=== PATIENT | male | born 1955 | race Caucasian/White ===

== ENCOUNTER 2020-01-21 16:26 | Inpatient (IN) | payer OTHER, SELFPAY ==
[~2020-01-21] VITALS: Ht 172.7 cm; Wt 74.8 kg
[2020-01-21 16:26] VITALS: BP_SYST 123
--- NOTE | 2020-01-21 16:26 | NUR ---
Placed in room 6. Placed on electronic console display operator, blood pressure machine and pulse oximeter. To gown for exam. Side rails up. Report given to MEI Lee.
--- NOTE | 2020-01-21 16:50 | NUR ---
PT ARRIVES FROM [facility] W/ C/O CP INTERMITENT AND DREW. LIMITED HX WAS ABLE TO OBTAINED FROM THE PT. pT HAS HX OF CVA, AND IS BEBOUND. STOMA IS VISUALIZED FROM A PRIOR INTUBATION. PT IS AWAKE AND ALERT
--- NOTE | 2020-01-21 16:55 | NUR ---
# 20 gauge angiocath placed to lfa. Use of asceptic technique. Opsite placed over site. Blood return noted. Blood for lab drawn from site. Flushed with 10 cc of normal saline. No evidence of infiltration noted. Patient tolerated well.
[2020-01-21] MEDS ORDERED: ASPIRIN 81 MG TAB.CHEW GT ONE (17:00)
[2020-01-21] MEDS ORDERED: PANTOPRAZOLE SODIUM 40 MG/VIAL (PROTONIX) IVP ONE (17:00)
[2020-01-21 17:23] LABS: CALCIUM 7.8 mg/dL (8.4-11.0); CREATININE 1.1 mg/dL (0.55-1.30); POTASSIUM 3.4 mmol/L (3.5-5.1)
[2020-01-21 17:26] LABS: BASOPHILS % (AUTO) 0.1 % (0.0-2.0); HEMATOCRIT 26.2 % (36-54); LYMPHOCYTES # (AUTO) 1.2 K/uL (1.0-5.5); LYMPHOCYTES % (AUTO) 6.7 % (20.5-51.5); MEAN CORPUSCULAR HEMOGLOBIN 34 pg (27-31); MEAN CORPUSCULAR HGB CONC 34 % (32-36); MEAN CORPUSCULAR VOLUME 100 fL (79.0-98.0); MONOCYTES # (AUTO) 0.4 K/uL (0.0-1.0); MONOCYTES % (AUTO) 2.1 % (1.7-9.3); NEUTROPHILS # (AUTO) 16.4 K/uL (1.8-7.7); NEUTROPHILS % (AUTO) 91.1 % (40.0-70.0); PLATELET COUNT (AUTO) 203 K/uL (130-430); RED BLOOD CELL COUNT(AUTO) 2.63 MIL/uL (4.2-6.2); RED CELL DISTRIBUTION WIDTH 12.8 % (9.0-15.0)
[2020-01-21 17:28] LABS: ALBUMIN 1.7 g/dL (3.4-4.8); TOTAL BILIRUBIN 0.3 mg/dL (0.0-1.0)
[2020-01-21] MEDS ORDERED: PIPERACILLIN/TAZO 3.375 GM in NS 50 ML IV ONE (17:30)
[2020-01-21 17:39] LABS: PROTHROMBIN TIME 10.4 SECS (9.5-12.5)
[2020-01-21] MEDS ORDERED: PIPERACILLIN/TAZOBACTAM 3.375 GM/VIAL (ZOSYN) IV ONE (17:46)
--- NOTE | 2020-01-21 17:50 | NUR ---
cOVID SWAB COLLECTED AND SENT TO THE LAB
[2020-01-21 17:57] LABS: C-REACTIVE PROTEIN QUANT 20.7 mg/dL (0-0.5)
--- NOTE | 2020-01-21 18:54 | NUR ---
UA collected via straight cath and sen to the lab
[2020-01-21] MEDS ORDERED: AZITHROMYCIN 500 MG in NS 250 ML IV ONE (19:00)
--- NOTE | 2020-01-21 19:00 | NUR ---
pt getting ABG's drawn, at the bedside.
--- NOTE | 2020-01-21 19:19 | NUR ---
Report given to Lisa HURLEY. Pt is in stable condition
--- NOTE | 2020-01-21 19:19 | NUR ---
Report recieved from MEI Lee.
--- NOTE | 2020-01-21 19:22 | NUR ---
REENA Winters at bedside examining patient.
[2020-01-21] MEDS ORDERED: AZITHROMYCIN 500 MG/VIAL (ZITHROMAX) IV ONE (19:42)
--- NOTE | 2020-01-21 19:42 | NUR ---
Pt resting, AxOx2, Azithromycin 500 mg given. Tolerating well.
[2020-01-21 19:46] LABS: BILIRUBIN,URINE NEGATIVE (NEGATIVE); CLARITY/URINE CLEAR (CLEAR); COLOR,URINE YELLOW (YELLOW); GLUCOSE,URINE TRACE (NEGATIVE); KETONES,URINE NEGATIVE (NEGATIVE); LEUKOCYTE ESTERASE ,URINE NEGATIVE (NEGATIVE); NITRITE, URINE NEGATIVE (NEGATIVE); PH,URINE 6.5 (5.0-8.0); PROTEIN URINE 3+ (NEGATIVE)
[2020-01-21 20:02] LABS: BLOOD, URINE TRACE (NEGATIVE)
[2020-01-21 20:49] LABS: BACTERIA,URINE MODERATE /HPF (None Seen)
[2020-01-21 20:50] LABS: CALCIUM OXALATE CRYSTALS,UR None Seen /HPF (None Seen); CALCIUM PHOSPHATE CRYSTALS,UR None Seen /HPF (None Seen); TRICHOMONAS,URINE None Seen /HPF (None Seen); TRIPLE PHOSPHATE CRYSTAL,UR None Seen /HPF (None Seen); URIC ACID CRYSTALS,URINE None Seen /HPF (None Seen); YEAST,URINE Few /HPF (None Seen)
[2020-01-21 20:51] LABS: COARSE GRANULAR CASTS,URINE None Seen /LPF (None Seen); FINE GRANULAR CASTS,URINE None Seen /LPF (None Seen); HYALINE CASTS, URINE None Seen /LPF (None Seen); MUCUS,URINE None Seen /LPF (None Seen); OTHER CASTS, URINE None Seen /LPF (None Seen); OTHER CRYSTALS,URINE None Seen /HPF (None Seen); URINE AMORPHOUS PHOSPHATES None Seen /HPF (None Seen); URINE AMORPHOUS URATE None Seen /HPF (None Seen); WAXY CASTS,URINE None Seen /LPF (None Seen)
--- NOTE | 2020-01-21 21:05 | NUR ---
Patient will be admitted to care of Admitted to [facility] unit. Will go to room 124. Belongings list completed. Complete and up to date summary report printed. SBAR report to be given at bedside with opportunity for questions.
--- NOTE | 2020-01-21 21:09 | NUR ---
Admission Note Received patient from ER with diagnosis of PNEUMONIA/ R/O COVID. Initial Plan of Care discussed-patient verbalized understanding. Oriented to room 124, call light, pain management and safety.
[2020-01-21 21:46] VITALS: BP_SYST 148
--- NOTE | 2020-01-21 22:00 | NUR ---
INITIAL NOTES Patient is resting, HOB elevated, Gtube intact, started gTUBE feeding with rate ordered by MD, residual of 5ml. IV site patent, dressings c/d/i, saline lock. No signs of shortness of breath, room air, sating at 100, occasional coughing noted. Call light within reach, speaks Kiswahili and little Thai, explained usage of call light, will make rounds as patient did not verbalize understanding of call light use. Bed alarm on, bed at lowest position, will continue to monitor.
--- NOTE | 2020-01-21 22:20 | NUR ---
Patient is wheezing, respiratory rate of 20, O2 saturation of 100. No signs of aspiration. Gtube feeding tolerated well, residual of 5 ml. HOB elevated, will continue to monitor. Addendum: 01/22/20 at 0127 by Lucy Bone RN WRONG TIME- CORRECT TIME- [id number]
[2020-01-22] VITALS (11 sets, daily range): BP systolic 86–177
--- NOTE | 2020-01-22 01:28 | NUR ---
Patient is resting, no signs of acute respiratory distress observed. Will continue to monitor.
--- NOTE | 2020-01-22 04:20 | NUR ---
Incontinence care provided. Patient helps turning. Will continue to monitor.
[2020-01-22] MEDS ORDERED: DEXTROSE 50% JECT 50 ML DISP.SYRIN IVP PRN (05:30)
[2020-01-22] MEDS ORDERED: ONDANSETRON HCL 4 MG/2 ML VIAL IVP PRN (05:30)
[2020-01-22] MEDS ORDERED: METOCLOPRAMIDE HCL 10 MG/2 ML VIAL IVP PRN (05:30)
[2020-01-22] MEDS: PIPERACILLIN/TAZO 3.375/DEX-IS 50 ML IV SCH ×3 (06:00→18:30)
--- NOTE | 2020-01-22 06:08 | NUR ---
Consultation Paged Reason for Consultation: Pneumonia/Ruleout Covid Was consult called: Y Person who was notified: Dr. Blake through pager Consulting Physician: Dr. Blake Estimation Manager Ordering Physician: Dr. Centeno
[2020-01-22] MEDS ORDERED: PIPERACILLIN/TAZOBACTAM 3.375 GM/VIAL (ZOSYN) IV ONE (06:23)
--- NOTE | 2020-01-22 07:20 | NUR ---
CLOSING NOTES Patient is resting, HOB elevated, room air, 100% saturation, IV site patent, IVF running, dressings c/d/i, G tube in place, running Gtube feeding, patient tolerating well. Patient spoke to son on phone. Blood sugar 205, insulin coverage provided. CAll light within reach, bed alarm on, bed at lowest position. All needs met throughotu shift. Will endorse care to oncoming shift.
[2020-01-22] MEDS: INSULIN REGULAR, HUMAN 100 UNITS/ML, 10 ML VIAL (humuLIN R) SUBCUT PRN ×3 (07:29→23:31)
[2020-01-22] MEDS: ACETAMINOPHEN 325 MG TABLET PO PRN (07:29)
--- NOTE | 2020-01-22 07:30 | NUR ---
Nutrition Update Mathew Scale 15 noted. Pt admitted for Pneumonia, R/O COVID-19 Diet: Glucerna 1.2 at 50ml/hr, Free Water Flush 30cc via GT BMI: 25.1 kg/m2 RD to follow per nutrition care standards.
--- NOTE | 2020-01-22 08:00 | NUR ---
AM ROUNDS: PATIENT SLEEPING DURING ROUNDS. VITAL SIGNS TAKEN,AFEBRILE.IV SALINE LOCK AT LEFT WRIST INTACT.TUBE FEEDS ON GOING. CALL LIGHT WITH IN REACH. BED LOCKED AT LOWEST POSITION. BED ALARM ON.CONTACT AIRBORNE DROPLET PRECAUTION RENDERED FOR COVID PUI,RESULTS STILL PENDING. NO ACUTE DISTRESS.
--- NOTE | 2020-01-22 10:00 | NUR ---
RN ROUNDS: RESTING. TUBE FEEDS ON GOING. STABLE.
--- NOTE | 2020-01-22 11:05 | NUR ---
Dietitian Recommendations *Recommend continuing Glucerna 1.2 at 50ml/hr via GT. Provides: 1440 kcal, 72gm protein and 966ml fluids daily from tubefeeding alone. Meets: 82% of lower end of estimated calorie needs and 103% of estimated protein needs. Please see Nutritional Assessment for details. MONIE, RD
--- NOTE | 2020-01-22 12:46 | NUR ---
TAYLOR PAGED: SPEAK WITH DR SANABRIA FOR PATIENT HAVING MILD SOB,O2 SAT=96-98%.ORDERED FOR STAT ABG AND CHEST X-RAY.
--- NOTE | 2020-01-22 13:00 | NUR ---
NASAL CANNULA: ABG RESULTS WITH PO2=66% AND THE REST WNL,RT PUT PATIENT ON O2 2L/NC,O2 SATURATION 98%.PATIENT'S BREATHING IMPROVED.
[2020-01-22] MEDS: MORPHINE 2 MG/ML INJ. SYRINGE IVP PRN (14:50)
--- NOTE | 2020-01-22 14:50 | NUR ---
HEADACHE/ANXIOUS: MORPHINE 2 MG IVP GIVEN PER REQUEST FOR HEADACHE. NO ADVERSE REACTIONS NOTED.
--- NOTE | 2020-01-22 14:58 | NUR ---
PATIENT CONDITION CALLED DR KEITH TO INFORMED HIM WITH PATIENT FAST HEART RATE, NEW ONSET AFIB. ORDERS RECEIVED
[2020-01-22] MEDS ORDERED: DILTIAZEM HCL 25 MG/5 ML VIAL IVP ONE (15:00)
--- NOTE | 2020-01-22 15:00 | NUR ---
CONSULTATION CALLED CARDIO CONSULTATION WITHDR KAUSHIK CERON
--- NOTE | 2020-01-22 15:04 | NUR ---
CARDIZEM IV: IV CARDIZEM 10MG IVP GIVEN FOR SVT'S ORDERED BY .
[2020-01-22] MEDS ORDERED: DILTIAZEM HCL 25 MG/5 ML VIAL ONE (15:09)
[2020-01-22] MEDS ORDERED: AMIODARONE HCL 200 MG TABLET GT ONE (15:45)
--- NOTE | 2020-01-22 15:45 | NUR ---
CARDIO ORDER: CONSULT WAS CALLED TO DR FAULKNER WITH ORDERS TO GIVE AMIODARONE 400MG PER G-TUBE AND ELIQUIS 5MG PER G-TUBE GIVEN . NO RESIDUALS PRIOR TO GIVING MEDS.
[2020-01-22] MEDS ORDERED: NOR10 GT (15:54)
[2020-01-22] MEDS ORDERED: INSU100V35 SQ (15:54)
--- NOTE | 2020-01-22 16:50 | NUR ---
TRANSFER TO ICU: TRANSFER TO ICU VIA BED ORDERED BY DR SANABRIA FOR CHANGE OF CONDITION. REPORT GIVEN TO ICU NURSE NILSA.
[2020-01-22] MEDS ORDERED: APIXABAN 2.5 MG TABLET GT ONE (17:00)
--- NOTE | 2020-01-22 17:00 | NUR ---
Assisted Dr. Blake with intubation. Intubation successful @ 1715, breath sounds present on both sides with bilateral chest rise. 7.5 ETT @ 26cm LL
--- NOTE | 2020-01-22 17:00 | NUR ---
Transfer note. Received plan of care via sbar from endorsing MEI Yepez.
--- NOTE | 2020-01-22 17:22 | NUR ---
TRANSFER ORDER: DR SANABRIA CAME AND SAW PATIENT IN THE ROOM WITH ORDERS TRANSFER TO ICU FOR CHANGE OF CONDITION. Addendum: 01/22/20 at 2010 by Precious Walter RN CORRECTED ABOVE TIME: CORRECT TIME WAS 1650PM.
[2020-01-22] MEDS ORDERED: PROPOFOL DRIP 1000 MG/ 100 ML BTL IV PRN (17:30)
[2020-01-22] MEDS ORDERED: AMIODARONE HCL 150 MG in D5W 100 ML IV ONE (17:30)
--- NOTE | 2020-01-22 17:33 | NUR ---
PAGED: CALLED DR KEITH'S EXCHANGE AND SPOKE WITH MEEK HERNÁNDEZ: PATIENT WAS TRANSFERRED TO ICU DUE TO CHANGE OF CONDITION BY DR SANABRIA'S ORDER.
--- NOTE | 2020-01-22 17:50 | NUR ---
Received patient from telemetry and was asked to help Dr. Blake intubated patient with RT. Received order for 20 Etomidate and 40 Succinylcholine. Patient received medication and intubated. Patient tolerated without complaint or complications. X Ray completed to confirm placement of ET Tube.
[2020-01-22] MEDS ORDERED: NACL 0.9% 1,000 ML IV ONE (19:00)
--- NOTE | 2020-01-22 19:00 | NUR ---
Dr. Blake called due to patient's low blood pressure. 64/42. Received orders to stop the propofol drip and to give 1 L bolus and start patient on madazolam drip.
--- NOTE | 2020-01-22 19:45 | NUR ---
Closing Note Provided plan of care via sbar to receiving MEI Hancock.
[2020-01-22] MEDS: MIDAZOLAM HCL IN 0.9 % NACL/PF 50 ML IV PRN (19:59)
--- NOTE | 2020-01-22 20:00 | NUR ---
Opening Note Pt in bed, agitated, bucking ventilator. Versed Drip to be started, new orders received, Propofol discontinued. Will monitor sedation level. Pt alert and able to track, but unable to follow commands. Attempting to pull ETT. Restraints noted bilaterally to wrist. A-fib on the monitor, uncontrolled, w/ HR in the 120-140s. Amiodarone drip running via IV site. Tolerating vent settings. G-tube in place, clamped. No residual noted. Skin intact, will continue to monitor.
[2020-01-22] MEDS ORDERED: AMIODARONE HCL 200 MG TABLET GT SCH (21:00)
[2020-01-22] MEDS: AMIODARONE HCL 900 MG in D5W 482 ML IV PRN (21:26)
--- NOTE | 2020-01-22 21:40 | NUR ---
PAGED DR. SANABRIA FOR ORDERS DIALED: [phone] SPOKE TO: AUTOMATED EXCHANGE
--- NOTE | 2020-01-22 21:49 | NUR ---
Called Dr. Dubois called and made squires of Post intubation ABG. New orders received. Will carry out as ordered.
--- NOTE | 2020-01-22 22:45 | NUR ---
rt notes 2019- abg done 2199- titrated fio2 to 50%, abg PO2 500%. pt cruz well. sat 100%. 2244- titrated fio2 to 40% per MD order, keep sat 92 and above.sat 100% katarina continue to monitor pt, pt asleep as of right now. rn america aware of changes.
[2020-01-23] VITALS (30 sets, daily range): BP systolic 102–171
[2020-01-23] MEDS: PIPERACILLIN/TAZO 3.375/DEX-IS 50 ML IV SCH ×4 (00:50→19:02)
--- NOTE | 2020-01-23 01:30 | NUR ---
RN Rounds Pt in bed asleep. No s/s of distress noted. Pt tolerating vent settings, FIO2 titrated down to 40%. BP stable, remains A-fib on the monitor. Will continue to monitor.
--- NOTE | 2020-01-23 03:31 | NUR ---
Pt rhythm now NSR w/ rate in the 70-80s. Pt remains asymptomatic, no s/s of distress noted. Tolerating vent settings. Will continue to monitor.
[2020-01-23] MEDS: APIXABAN 2.5 MG TABLET GT SCH ×2 (05:59→19:04)
[2020-01-23] MEDS: MIDAZOLAM HCL IN 0.9 % NACL/PF 50 ML IV PRN ×2 (06:05→15:34)
--- NOTE | 2020-01-23 06:15 | NUR ---
DE LA PAZ CATH: #14 FR [place] catheter inserted with use of sterile technique. Bulb inflated with 10 cc sterile water. Immediate return of 50 cc yellow urine noted. Bedside drainage bag placed below level of bladder. Pt tolerated procedure.
--- NOTE | 2020-01-23 06:37 | NUR ---
Closing Note Pt remains sedated, Versed @2mg/hr. SR noted, tolerating vent settings. VSS. Afebrile. IV sites C/D/I. Pt to have PICC Line placed today. Consent signed and in chart. Howe catheter inserted, yellow urine output noted. Restraints remain in place, bilaterally. No s/s of skin breakdown noted. G-tube remains clamped. Will endorse to oncoming RN.
--- NOTE | 2020-01-23 08:02 | NUR ---
Endorsement Report given to oncoming RN at bedside via SBAR approach.
--- NOTE | 2020-01-23 08:03 | NUR ---
OPENING NOTE Patient resting in the bed. No acute distress. HOB elevated. ET tube intact, size 7.5, lipline 26cm. On vent: AC=14, AS=533, FiO2=40%, PEEP=5. Skin warm and dry to touch. IV intact to left and right wrist, no redness, no swelling, patent. On NS at 999ml/hr, Versed drip at 4mg/hr, Amiodarone drip at 0.5mg/min, infusing well. F/C intact, drain gravity. On isolation. Bilateral wrist soft restraint in placed. Safety measure maintained. Call light within reached. Will continue to monitor.
--- NOTE | 2020-01-23 08:20 | NUR ---
SEEN AND EXAMINED BY STACIA ELLINGTON WITH ORDER RECEIVED.
[2020-01-23 09:37] LABS: BASOPHILS % (AUTO) 0.3 % (0.0-2.0); EOSINOPHILS # (AUTO) 0.1 K/uL (0.0-0.4); EOSINOPHILS % (AUTO) 0.5 % (0.0-4.0); HEMATOCRIT 27.3 % (36-54); HEMOGLOBIN 9.3 g/dL (14.0-18.0); LYMPHOCYTES # (AUTO) 1.6 K/uL (1.0-5.5); LYMPHOCYTES % (AUTO) 12.9 % (20.5-51.5); MEAN CORPUSCULAR HEMOGLOBIN 34 pg (27-31); MEAN CORPUSCULAR HGB CONC 34 % (32-36); MEAN CORPUSCULAR VOLUME 100 fL (79.0-98.0); MONOCYTES # (AUTO) 0.6 K/uL (0.0-1.0); MONOCYTES % (AUTO) 4.7 % (1.7-9.3); NEUTROPHILS # (AUTO) 10.3 K/uL (1.8-7.7); NEUTROPHILS % (AUTO) 81.6 % (40.0-70.0); PLATELET COUNT (AUTO) 214 K/uL (130-430); RED BLOOD CELL COUNT(AUTO) 2.74 MIL/uL (4.2-6.2); RED CELL DISTRIBUTION WIDTH 13.2 % (9.0-15.0); WHITE BLOOD COUNT (AUTO) 12.6 K/uL (4.8-10.8)
[2020-01-23 09:52] LABS: ALBUMIN 1.6 g/dL (3.4-4.8); CALCIUM 7.8 mg/dL (8.4-11.0); CREATININE 1.13 mg/dL (0.55-1.30); TOTAL BILIRUBIN 0.5 mg/dL (0.0-1.0)
[2020-01-23 10:15] LABS: POTASSIUM 2.9 mmol/L (3.5-5.1)
--- NOTE | 2020-01-23 10:59 | NUR ---
PICC LINE INSERTION PICC line inserted by PICC RN at bedside. Patient tolerated procedure well. PICC intact to right upper arm with 2 lumen. Waited x-ray for placement confirmation.
--- NOTE | 2020-01-23 12:05 | NUR ---
2D ECHO DONE AT BEDSIDE.
--- NOTE | 2020-01-23 12:09 | NUR ---
X-RAY CONFIRMED THE PICC LINE PLACEMENT, OK TO USE.
--- NOTE | 2020-01-23 12:10 | NUR ---
GT FEEDING STARTED Started GT feeding of Glucerna 1.5 at 30ml/hr. HOB elevated. Continue to monitor.
--- NOTE | 2020-01-23 12:22 | NUR ---
K=2.9 Called Ace Lorenzo regarding K=2.9. However, not called back. Called Juan Carlos Latham with order received.
[2020-01-23] MEDS ORDERED: POTASSIUM CHLORIDE 40 MEQ in NS 250 ML IV ONE (12:30)
[2020-01-23] MEDS ORDERED: POTASSIUM CHLORIDE 20 MEQ/PKT PACKET GT ONE (12:30)
[2020-01-23] MEDS: INSULIN REGULAR, HUMAN 100 UNITS/ML, 10 ML VIAL (humuLIN R) SUBCUT PRN ×2 (12:51→19:03)
--- NOTE | 2020-01-23 14:45 | NUR ---
ROUND Patient resting in the bed with eye closed. No acute distress. ET tube intact to vent. HOB elevated. Continue on GT feeding, tolerated well. F/C intact, drain gravity. Bilateral wrist soft restraint in placed. Isolation maintained. Safety measure maintained. Call light within reached. Continue to monitor.
--- NOTE | 2020-01-23 16:20 | NUR ---
ROUND Patient resting in the bed with eye closed. No acute distress. ET tube intact to vent. HOB elevated. Continue on GT feeding, tolerated well. F/C intact, drain gravity. Bilateral wrist soft restraint in placed, able to move fingers and hand without problem. Isolation maintained. Safety measure maintained. Call light within reached. Continue to monitor.
--- NOTE | 2020-01-23 16:31 | NUR ---
Case mgt: I rec'd voice message at 1610 from a lady named Marge from [facility] wanting to discuss pt possibly going home on home health. Our dept hasn't faxed any referrals to [facility] and pt come to us from [facility]--Marge's ph#[phone]-- RN
[2020-01-23] MEDS: AMIODARONE HCL 900 MG in D5W 482 ML IV PRN (16:48)
--- NOTE | 2020-01-23 18:45 | NUR ---
CLOSING NOTED Patient resting in the bed. No acute distress. ET tube intact to vent. HOB elevated. GT intact, patent. GT feeding tolerated well. F/C intact, drain gravity. All needs met. Bilateral wrist soft restraint in placed. Released Q2hr. Able to move fingers and hands without problem. Safety measure maintained. Call light within reached. Will endorse to night nurse.
--- NOTE | 2020-01-23 20:00 | NUR ---
ORALLY INTUBATED. SUCTIONED WITH SMALL AMOUNT OF WHITE MUCUS OBTAINED. ORAL CARE GIVEN. LEFT EXTREMITIES IMPAIRED. RIMA SOFT WRIST RESTRAINTS ON FOR SAFETY. GT FEEDING WITH GLUCERNA 1.5 INFUSING AT 30CC/HR. BRANDI PICC LINE DRSG D/I. ON VERSED DRIP AT 4 MG/HR, AND AMIODARONE DRIP AT 0.5MG/MIN. DE LA PAZ CATH PATENT DRAINING CLOUDY JOURDAN URINE TO GRAVITY. SR. ISOLATION OBSERVED FOR PUI COVID.
--- NOTE | 2020-01-23 22:00 | NUR ---
SUCTIONED. TURNED. HS CARE GIVEN.
[2020-01-24] VITALS (32 sets, daily range): BP systolic 123–171
--- NOTE | 2020-01-24 | NUR ---
ACCU-CHEK 197, 2 UNITS REGULAR INSULIN SQ GIVEN PER SLIDING SCALE COV. ORAL CARE. SUCTIONED. GT FLUSHED WITH 150CC H2O.
[2020-01-24] MEDS: PIPERACILLIN/TAZO 3.375/DEX-IS 50 ML IV SCH ×4 (00:08→17:37)
[2020-01-24] MEDS: INSULIN REGULAR, HUMAN 100 UNITS/ML, 10 ML VIAL (humuLIN R) SUBCUT PRN ×4 (00:10→17:36)
--- NOTE | 2020-01-24 02:00 | NUR ---
SOUNDLY ASLEEP. NO DISTRESS NOTED. PULSES PALPABLE.
[2020-01-24] MEDS: MIDAZOLAM HCL IN 0.9 % NACL/PF 50 ML IV PRN (02:38)
--- NOTE | 2020-01-24 05:00 | NUR ---
CHG BATH GIVEN. ORAL CARE. PARTIAL LINEN CHANGE. DOES NOT ASSIST WITH TURNING. CASSI PROC WELL.
[2020-01-24] MEDS: APIXABAN 2.5 MG TABLET GT SCH ×2 (05:46→17:36)
[2020-01-24 05:56] LABS: BASOPHILS % (AUTO) 0.2 % (0.0-2.0); EOSINOPHILS # (AUTO) 0.1 K/uL (0.0-0.4); EOSINOPHILS % (AUTO) 0.8 % (0.0-4.0); HEMATOCRIT 26.2 % (36-54); HEMOGLOBIN 9.2 g/dL (14.0-18.0); LYMPHOCYTES # (AUTO) 1.1 K/uL (1.0-5.5); LYMPHOCYTES % (AUTO) 12.3 % (20.5-51.5); MEAN CORPUSCULAR HEMOGLOBIN 35 pg (27-31); MEAN CORPUSCULAR HGB CONC 35 % (32-36); MEAN CORPUSCULAR VOLUME 98 fL (79.0-98.0); MONOCYTES # (AUTO) 0.5 K/uL (0.0-1.0); MONOCYTES % (AUTO) 5.7 % (1.7-9.3); NEUTROPHILS # (AUTO) 7.1 K/uL (1.8-7.7); PLATELET COUNT (AUTO) 206 K/uL (130-430); RED BLOOD CELL COUNT(AUTO) 2.67 MIL/uL (4.2-6.2); RED CELL DISTRIBUTION WIDTH 12.9 % (9.0-15.0); WHITE BLOOD COUNT (AUTO) 8.8 K/uL (4.8-10.8)
--- NOTE | 2020-01-24 06:00 | NUR ---
ACCU-CHEK 215, 4 UNITS REGULAR INSULIN SQ GIVEN PER SLIDING SCALE COV. UO GOOD. GT FLUSHED WITH 150CC H2O. REMAINS IN GUARDED CONDITION.
[2020-01-24 06:43] LABS: ALBUMIN 1.6 g/dL (3.4-4.8); CALCIUM 7.7 mg/dL (8.4-11.0); CREATININE 1.02 mg/dL (0.55-1.30); POTASSIUM 3.2 mmol/L (3.5-5.1); THYROID STIMULATING HORMONE 0.42 uIu/mL (0.36-3.74); TOTAL BILIRUBIN 0.4 mg/dL (0.0-1.0)
--- NOTE | 2020-01-24 07:45 | NUR ---
PULMO CONSULT: SEEN BY DR. SANABRIA, CHANGED ORDER OF VENT SETTING TO CPAP 5, PS 12, FIO2 40% SATURATION 98-100%.
[2020-01-24] MEDS ORDERED: POTASSIUM CHLORIDE 20 MEQ/PKT PACKET GT ONE (08:45)
[2020-01-24] MEDS: AMIODARONE HCL 200 MG TABLET PO SCH ×2 (10:14→21:13)
--- NOTE | 2020-01-24 10:30 | NUR ---
Notes: notified MD Blake about the ABG result. new order received. noted and carried out. Addendum: 01/24/20 at 1039 by Ana Powell RN wrong entry to wrong patient. please disregard.
--- NOTE | 2020-01-24 11:30 | NUR ---
Decrease versed to 1 mg/hr. patient is opening eyes, able to move arms and bending legs. vent setting on cpap 5, ps 12, fio2 decrease to 30%. saturation 100%.
--- NOTE | 2020-01-24 12:27 | NUR ---
2 HRS AFTER AMIODARONE PO ADMINISTERED. AMIODARONE DRIP DISCONTINUED PER MD FAULKNER ORDERED.
--- NOTE | 2020-01-24 14:50 | NUR ---
notes: decrease versed to 0.5mg /hr. patient open eyes, able to move arms and bending knees. vital sign stable, afebrile. oral care, skin care, turn and reposition with pillow support.keep hob elevated to prevent aspiration. per MD Blake check for the leak in the ET tube. respiratory therapies informed.
--- NOTE | 2020-01-24 15:20 | NUR ---
family updated about the patient current condition.
--- NOTE | 2020-01-24 17:50 | NUR ---
Patient restless, biting tube,pointing to take off vent. increase versed to 1 mg/hr. per Dr. Blake place back to same setting. ac 14, tv 500, fio2 30% peep 5. saturation 99%.
--- NOTE | 2020-01-24 18:09 | NUR ---
1745 PT PLACED BACK ON ORIGINAL SETTINGS AC14 500+5 .30.... RN AWARE. Addendum: 01/24/20 at 1810 by Jazmín Stewart RT Amended: Links added.
--- NOTE | 2020-01-24 18:48 | NUR ---
Notes: all needs mets. vital signs stable, afebrile. no s/s of distress. patient awake, moving head, arms and legs. frequent reorientation needed.
--- NOTE | 2020-01-24 20:00 | NUR ---
OPENS EYES SPON. ORALLY INTUBATED. ON VERSED DRIP AT 1 MG/HR. RIMA SOFT WRIST RESTRAINTS ON FOR SAFETY. GT FEEDING WITH GLUCERNA 1.5 INFUSING AT 30CC HR. BRANDI PICC LINE DRSG D/I. DE LA PAZ CATH PATENT DRAINING JOURDAN HAZY URINE TO GRAVITY. SR.
--- NOTE | 2020-01-24 22:00 | NUR ---
SUCTIONED. TURNED. HS CARE DONE. VERSED INCREASED TO 2 MG/HR EARLIER FOR RESTLESSNESS.
[2020-01-25] VITALS (38 sets, daily range): BP systolic 106–181
--- NOTE | 2020-01-25 | NUR ---
AWAKE. ACCU-CHEK 210, 4 UNITS REGULAR INSULIN SQ GIVEN PER SLIDING SCALE COV. SUCTIONED AGAIN WITH SAME RESULTS. TURNED. ORAL CAR GIVEN. GT FLUSHED WITH 150CC H2O.
[2020-01-25] MEDS: INSULIN REGULAR, HUMAN 100 UNITS/ML, 10 ML VIAL (humuLIN R) SUBCUT PRN ×5 (00:03→23:18)
[2020-01-25] MEDS: MIDAZOLAM HCL IN 0.9 % NACL/PF 50 ML IV PRN (00:08)
--- NOTE | 2020-01-25 02:00 | NUR ---
DOZES ON AND OFF. NO DISTRESS NOTED.
--- NOTE | 2020-01-25 05:00 | NUR ---
1 MOD FORMED GREENISH BROWN STOOL DEFECATED, CLEANED. WILLOW-CARE GIVEN. CHG BATH DONE. ORAL CARE, DE LA PAZ CARE RENDERED. Z-GUARD APPLIED TO PERINEUM, SKIN CARE DONE. PARTIAL LINEN CHANGE DONE. DOES NOT ASSIST WITH TURNING. CASSI PROC WELL.
--- NOTE | 2020-01-25 06:00 | NUR ---
ACCU-CHEK 177, 2 UNITS REGULAR INSULIN SQ GIVEN PER SLIDING SCALE COV. UO GOOD. GT FLUSHED WITH 150CC H2O. REMAINS IN GUARDED CONDITION.
[2020-01-25] MEDS: PIPERACILLIN/TAZO 3.375/DEX-IS 50 ML IV SCH ×5 (06:04→23:16)
[2020-01-25] MEDS: APIXABAN 2.5 MG TABLET GT SCH ×2 (06:04→17:14)
--- NOTE | 2020-01-25 07:24 | NUR ---
Opening Note received bedside SBAR report from [facility] shift lead RN, patient resting in bed, respirations even and unlabored on mechanical ventilator, waller catheter draining to gravity, educated patient on use of call light and asked to call for assistance, call light in reach, bed in low and locked position, bed alarm on.
--- NOTE | 2020-01-25 09:00 | NUR ---
Physician Rounds Dr. Blake at bedside examining patient, per Dr. Blake stop IV versed drip and have respiratory therapist place patient on CPAP, versed drip stopped at this time, patient resting in bed, eyes open, patient awake, informed respiratory therapist of orders to place patient on CPAP and to call Dr. Blake for weaning procedures.
[2020-01-25] MEDS: AMIODARONE HCL 200 MG TABLET GT SCH ×2 (09:10→21:35)
--- NOTE | 2020-01-25 09:23 | NUR ---
CPAP respiratory therapist Rosalba at bedside, respiratory therapist placed patient on CPAP 5, pressure support 10, FiO2 30%, respirations even and unlabored.
--- NOTE | 2020-01-25 09:25 | NUR ---
0925 CHANGED VENT SETTINGS TO CPAP 5, PS 10. HR 82, SPO2 99%. PT TOLERATING WELL. CONTINUE TO MONITOR PT.
--- NOTE | 2020-01-25 10:14 | NUR ---
Wound Care educated patient on purpose and procedure for wound care, wound care completed to neck and buttocks, patient tolerated well, no pain noted during or after wound care, see ICU shift assessment for wound care.
--- NOTE | 2020-01-25 10:22 | NUR ---
Physician Rounds Dr. Centeno at bedside examining patient, informed him that patient is on CPAP and that versed was stopped at 0900.
--- NOTE | 2020-01-25 11:46 | NUR ---
Nutrition F/U Admitting Diagnosis Pneumonia, R/O COVID Reviewed Pertinent Medical/Surgical Hx Medical Record Medical History Comment: Pneumonia, COVID-19 Neagtive x 2 01/20, 01/22, Anemia, Hyperglycemia per ER MD documentation. PMH: DM, GERD, HTN< Renal Dz, PSH: Tracheostomy, GT placement. Subjective Information Per EMR review, COVID-19 PCR negative x2 on 01/20 and 01/22. Noted pt's TF regimen modified to TF Glucerna 1.5 at 30 ml/hr via GT per EMR. RD s/w ICU nursing station via phone this morning -- nursing station stated pt tolerating TF well w/ no residuals. FWF clarified per RN at 150 ml Q6H. Current TF regimen provides: 1080 kcal, 46 g protein, and 1147 total H2O -- meeting 62% of lower end estimated calorie needs and 65% of estimated protein needs and is not adequate. Recommend increase TF Glucerna 1.5 goal rate to 45 ml/hr w/ FWF 150 ml Q6H to provide -- 1620 kcal, 69 g protein, 1421 ml total H2O daily to meet 93% of estimated lower end calorie needs and 99% of estimated protein needs. Current Diet Order/Nutrition Support Glucerna 1.5 at 30ml/hr, Free Water Flush 30ml/hr via GT x 2 days Patient/Significant Other Unable To Verbalize Pertinent Medications insulin, reglan, zofran, piperacillin/tazobactam, eliquis Pertinent Labs 01/23 Na 145WNL, K 3.2L, BG 233H, BUN 20WNL; 01/24 POC BG 177H; COVID-19 PCR Negative x 2 01/20, 01/22 per EMR Height (Feet) 5 feet Height (Inches) 8.00 inches Weight (Pounds) 165 pounds Weight (Calculated Kilograms) 74.994106 kilograms Patient Weight 74.843 kg Difficulty With: Swallowing Skin Integrity Comment: Mathew scale: 13. No PIs, +healed scar to neck and coccyx. no edemas per EMR Current % PO N/A on EN support Estimated Energy Expenditure (kcals/day) 7144-2072 kcal/day (25-30 kcal/kg IBW for maintenance) Estimated Protein Required (g/day) 70gm/day (1gm/kg IBW for maintenance) Estimated Fluid Required (l/day) 2.1 L/day (30ml/kg IBW for maintenance) Problem/Etiology/Signs/Symptoms Altered nutrition-related labs r/t endocrine dysfunction AEB elevated BG and POC BG lab values and Hx of DM. *ongoing Expected Outcomes/Goals Monitor intake of nutrition support w/ goal of pt meeting at least 75% of estimated nutritional needs, labs trending WNL, normal GI function, skin integrity/wt maintenance. Dietitian Recommendations *Recommend increase goal rate TF Glucerna 1.5 to 45ml/hr via GT w/ FWF 150 ml Q6H. Provides: 1620 kcal, 69gm protein and 821ml fluids daily from tubefeeding alone. Meets: 93% of lower end of estimated calorie needs and 99% of estimated protein needs. Follow Up High Risk: F/U in 2-3days
--- NOTE | 2020-01-25 11:50 | NUR ---
1150 WEANING PARAMETERS. RSBI 45, SPONTANEOUS RES RATE 19, VT 425ML. PT UNABLE TO FOLLOW DIRECTIONS. UNABLE TO MEASURE NIF AND VC.
--- NOTE | 2020-01-25 12:02 | NUR ---
Dietitian Recommendations *Recommend increase goal rate TF Glucerna 1.5 to 45ml/hr via GT w/ FWF 150 ml Q6H. Provides: 1620 kcal, 69gm protein and 821ml fluids daily from tubefeeding alone. Meets: 93% of lower end of estimated calorie needs and 99% of estimated protein needs. Please see Nutrition F/U for details. EP,RD
--- NOTE | 2020-01-25 12:23 | NUR ---
Incontinent/Oral Care patient incontinent of bowel, patient cleaned and linen changed, patient repositioned, patient tolerated well, HOB elevated 30 degrees, oral care provided, patient tolerated well.
--- NOTE | 2020-01-25 14:30 | NUR ---
1430 I TALKED TO MD SANABRIA ON THE PHONE. WEANING PARAMETERS RSBI 45, PT UNABLE TO DO NIF AND VC. PT UNABLE TO FOLLOW DIRECTIONS. NOTIFIED MD SANABRIA. MD SANABRIA ORDERED TO BACK TO PREVIOUS SETTINGS, AC14, VT500, PEEP+5 FOR TONIGHT.
--- NOTE | 2020-01-25 14:39 | NUR ---
RN Rounds patient resting in bed, respirations even and unlabored on CPAP settings, HOB elevated 30 degrees, tube feeding infusing well, patient tolerating tube feeding well, zero residual.
[2020-01-25] MEDS ORDERED: hydrALAZINE HCL 25 MG TABLET GT ONE (15:30)
--- NOTE | 2020-01-25 15:31 | NUR ---
Spoke with Physician spoke with Dr. Harrison, informed him of patients BP 160/80, HR 78, new medication orders received, verified with telephone read back.
--- NOTE | 2020-01-25 17:06 | NUR ---
RN Rounds patient resting in bed, no pain noted using FLACC scale, tube feeding infusing well, zero residuals, HOB elevated 30 degrees.
--- NOTE | 2020-01-25 18:21 | NUR ---
Spoke with Physician spoke with Dr. Harrison, informed him of current BP 164/87, HR 83, informed him of home medication norvasc, new medication orders received to start tomorrow morning, per Dr. Harrison no medications are indicated at this time.
[2020-01-25] MEDS: MORPHINE 2 MG/ML INJ. SYRINGE IVP PRN ×2 (18:41→23:16)
--- NOTE | 2020-01-25 19:17 | NUR ---
Closing Note SBAR report given to receiving RN, patient resting in bed, pain controlled at this time using FLACC scale, respirations even and unlabored on CPAP mode on mechanical ventilator, waller catheter draining to gravity, educated patient on use of call light and asked to call for assistance, call light in reach, bed in low and locked position, bed alarm on.
--- NOTE | 2020-01-25 19:25 | NUR ---
PM SHIFT ASSESSMENT Pt is awake, able to respond to some yes or no questions. SR on monitor. Tolerating current vent settings. Skin warm and dry. Howe catheter in place and draining to gravity. BRANDI PICCLINE noted with TKO infusing. Bilateral wrist restraints in place, no signs of skin issues noted. Safety precautions in place, call light within reach. Will continue to monitor.
--- NOTE | 2020-01-25 20:00 | NUR ---
LEFT WRIST RESTRAINT TAKEN OFF. PT HAS LEFT SIDED WEAKNESS FROM HX OF CVA, PT IS UNABLE TO MOVE LEFT EXTREMITY ON HIS OWN. WILL CONTINUE TO MONITOR.
[2020-01-26] VITALS (28 sets, daily range): BP systolic 135–183
[2020-01-26] MEDS ORDERED: DEXAMETHASONE SOD PHOSPHATE 4 MG/ML VIAL IVP SCH
[2020-01-26] MEDS: PIPERACILLIN/TAZO 3.375/DEX-IS 50 ML IV SCH ×4 (05:50→23:34)
[2020-01-26] MEDS: APIXABAN 2.5 MG TABLET GT SCH ×2 (05:53→17:19)
[2020-01-26] MEDS: INSULIN REGULAR, HUMAN 100 UNITS/ML, 10 ML VIAL (humuLIN R) SUBCUT PRN ×4 (05:59→23:33)
--- NOTE | 2020-01-26 07:15 | NUR ---
ENDORSEMENT Pt care endorsed to dayshift RN using nursing SBAR.
--- NOTE | 2020-01-26 07:15 | NUR ---
Opening Note received SBAR report from production shift supervisor RN, patient resting in bed, respirations even and unlabored on mechanical ventilator, waller catheter draining to gravity, call light in reach, bed in low and locked position, bed alarm on.
[2020-01-26] MEDS: MORPHINE 2 MG/ML INJ. SYRINGE IVP PRN ×2 (07:26→21:28)
[2020-01-26] MEDS: amLODIPine BESYLATE 10 MG TABLET GT SCH (08:04)
[2020-01-26] MEDS: AMIODARONE HCL 200 MG TABLET GT SCH ×2 (08:04→21:27)
[2020-01-26] MEDS ORDERED: hydrALAZINE HCL 25 MG TABLET GT SCH (09:00)
--- NOTE | 2020-01-26 09:00 | NUR ---
Physician Rounds Dr. Blake at bedside examining patient with respiratory therapist, patient placed on CPAP 5, pressure support 10, Fi02 30%, respirations even and unlabored.
--- NOTE | 2020-01-26 09:23 | NUR ---
Physician Rounds Dr. Harrison at bedside examining patient.
[2020-01-26 10:33] LABS: CALCIUM 7.7 mg/dL (8.4-11.0); CREATININE 1.08 mg/dL (0.55-1.30); POTASSIUM 3.1 mmol/L (3.5-5.1)
[2020-01-26 10:35] LABS: BASOPHILS % (AUTO) 0.5 % (0.0-2.0); EOSINOPHILS # (AUTO) 0.2 K/uL (0.0-0.4); HEMATOCRIT 26.8 % (36-54); HEMOGLOBIN 9.1 g/dL (14.0-18.0); LYMPHOCYTES # (AUTO) 1.6 K/uL (1.0-5.5); LYMPHOCYTES % (AUTO) 17.8 % (20.5-51.5); MEAN CORPUSCULAR HEMOGLOBIN 34 pg (27-31); MEAN CORPUSCULAR HGB CONC 34 % (32-36); MEAN CORPUSCULAR VOLUME 99 fL (79.0-98.0); MONOCYTES # (AUTO) 0.6 K/uL (0.0-1.0); MONOCYTES % (AUTO) 6.2 % (1.7-9.3); NEUTROPHILS # (AUTO) 6.7 K/uL (1.8-7.7); NEUTROPHILS % (AUTO) 73.5 % (40.0-70.0); PLATELET COUNT (AUTO) 226 K/uL (130-430); RED BLOOD CELL COUNT(AUTO) 2.72 MIL/uL (4.2-6.2); RED CELL DISTRIBUTION WIDTH 12.9 % (9.0-15.0); WHITE BLOOD COUNT (AUTO) 9.1 K/uL (4.8-10.8)
[2020-01-26 10:44] LABS: ALBUMIN 1.7 g/dL (3.4-4.8); TOTAL BILIRUBIN 0.4 mg/dL (0.0-1.0)
--- NOTE | 2020-01-26 10:45 | NUR ---
Spoke with Physician spoke with Dr. Blake, informed her of patients ABG results, orders for extubation and to place patient on 2L nasal cannula, new medication orders for breathing treatments received, verified with read back.
--- NOTE | 2020-01-26 10:50 | NUR ---
RT NOTES - EXTUBATION PER DR. SANABRIA EXTUBATED PT WITH HELP OF MEI ZAFAR. PLACED ON 2L N/C POST EXTUBATION. SPO2 100%. HR 84. NO RESPIRATORY DISTRESS NOTED. WILL CONTINUE MONITORING.
--- NOTE | 2020-01-26 11:06 | NUR ---
PAGED PAGED STACIA JACKSON AT [phone] SPOKE WITH ACE.
--- NOTE | 2020-01-26 11:08 | NUR ---
Incontinent/Oral Care patient incontinent, small amount of stool noted, patient cleaned and linen changed, patient tolerated well, patient resting in bed, HOB elevated 35 degrees, oral care provided, patient tolerated well, patients respirations even and unlabored on 2L nasal cannula, O2Sat 100%, patient is verbal, speaking a few words, educated patient on use of call light and asked to call for assistance, patient verbalized understanding, patient returned demonstration, call light in reach.
--- NOTE | 2020-01-26 11:12 | NUR ---
Spoke with Physician spoke with Dr. Harrison, informed him of potassium 3.1, new medication orders received, verified with read back.
[2020-01-26] MEDS ORDERED: POTASSIUM CHLORIDE 20 MEQ/PKT PACKET GT ONE (11:15)
[2020-01-26] MEDS: IPRATROPIUM/ALBUTEROL SULFATE 3 ML AMPUL.NEB (DUONEB) INH SCH ×2 (11:15→19:00)
--- NOTE | 2020-01-26 11:42 | NUR ---
Wound Care educated patient on purpose and procedure for wound care to old stoma site, patient verbalized understanding, wound care completed, patient denies any pain during or after wound care, see ICU shift assessment for wound care.
--- NOTE | 2020-01-26 11:50 | NUR ---
Physician Rounds Dr. Humphries at bedside examining patient, informed Dr. Humphries of stridor heard since extubation, per Dr. Humphries this is expected after extubation, patient verbal, O2Sat 100%, no new orders.
[2020-01-26] MEDS ORDERED: CYANOCOBALAMIN 1000 mCg TABLET GT ONE (13:00)
[2020-01-26] MEDS ORDERED: MULTIVITAMINS TAB 1 TABLET GT ONE (13:00)
--- NOTE | 2020-01-26 13:05 | NUR ---
Spoke with Physician/BiPAP spoke with Dr. Blake, informed her of increasing audible stridor and that patient is using accessory muscles to breath, new medications orders received, verified with read back, orders for BiPAP received, respiratory therapist placed patient on BiPAP at 1320, stridor and patients use of accessory muscles has improved, patient resting in bed, O2Sat 100%, respiratory rate 17.
[2020-01-26] MEDS ORDERED: DEXAMETHASONE SOD PHOSPHATE 4 MG/ML VIAL IVP ONE (13:15)
[2020-01-26] MEDS ORDERED: RACEPINEPHRINE HCL 0.5 ML VIAL.NEB INH ONE ×3 (13:15→20:30)
--- NOTE | 2020-01-26 13:20 | NUR ---
RT NOTES Pt. appears to have responded to racemic epi well, placed pt on bipap 12/5 BUR 12 28% per Dr Blake's order. Pt appears to tolerate settings well. Alarms are set and audible @1335 pt. resting/sleeping comfortably.
[2020-01-26] MEDS ORDERED: DEXAMETHASONE SOD PHOSPHATE 4 MG/ML VIAL ONE (13:29)
--- NOTE | 2020-01-26 15:05 | NUR ---
RN Rounds patient repositioned in bed, respirations even and unlabored on BiPAP, patient denies any pain.
--- NOTE | 2020-01-26 17:35 | NUR ---
RN Rounds repositioned patient, patient resting in bed, tolerating BiPAP settings well, respiratory rate 19, O2Sat 100%, no acute distress noted, patient denies any pain.
--- NOTE | 2020-01-26 18:36 | NUR ---
Physician ROunds Dr. Blake at bedside examining patient.
--- NOTE | 2020-01-26 19:18 | NUR ---
Closing Note SBAR report given to receiving RN, patient resting in bed, patient tolerating BiPAP settings well, respirations even and unlabored, no acute distress noted, call light in reach, bed in low and locked position, bed alarm on, care endorsed to security shift manager RN.
--- NOTE | 2020-01-26 19:25 | NUR ---
PM SHIFT ASSESSMENT Pt is awake and oriented x2. ST on monitor. SPO2 above 98%. Skin warm and dry. Howe catheter in place and draining to gravity. BRANDI PICCLINE noted with TKO infusing. Bilateral wrist restraints in place, no signs of skin issues noted. Safety precautions in place, call light within reach. Will continue to monitor.
--- NOTE | 2020-01-26 20:45 | NUR ---
Spoke to Dr. Dubois. Informed MD that patient was having stridor and difficulty breathing. Received orders, will carry out.
[2020-01-26] MEDS: MULTIVITAMINS TAB 1 TABLET GT SCH (21:26)
[2020-01-27] VITALS (15 sets, daily range): BP systolic 149–173
[2020-01-27] MEDS: DEXAMETHASONE SOD PHOSPHATE 4 MG/ML VIAL IVP SCH ×4 (00:27→21:48)
--- NOTE | 2020-01-27 04:05 | NUR ---
CHG BATH CHG BATH GIVEN. PT TOLERATED CARE WELL. WILL CONTINUE TO MONITOR.
[2020-01-27] MEDS: PIPERACILLIN/TAZO 3.375/DEX-IS 50 ML IV SCH ×4 (05:39→23:04)
[2020-01-27] MEDS: APIXABAN 2.5 MG TABLET GT SCH ×2 (05:41→17:28)
[2020-01-27] MEDS: INSULIN REGULAR, HUMAN 100 UNITS/ML, 10 ML VIAL (humuLIN R) SUBCUT PRN ×4 (05:54→23:12)
[2020-01-27 06:10] LABS: HEMATOCRIT 26.6 % (36-54); HEMOGLOBIN 9.2 g/dL (14.0-18.0); LYMPHOCYTES # (AUTO) 0.4 K/uL (1.0-5.5); MEAN CORPUSCULAR HEMOGLOBIN 34 pg (27-31); MEAN CORPUSCULAR HGB CONC 35 % (32-36); MEAN CORPUSCULAR VOLUME 99 fL (79.0-98.0); MONOCYTES # (AUTO) 0.1 K/uL (0.0-1.0); MONOCYTES % (AUTO) 0.9 % (1.7-9.3); NEUTROPHILS # (AUTO) 6.7 K/uL (1.8-7.7); NEUTROPHILS % (AUTO) 93.1 % (40.0-70.0); PLATELET COUNT (AUTO) 225 K/uL (130-430); RED BLOOD CELL COUNT(AUTO) 2.69 MIL/uL (4.2-6.2); RED CELL DISTRIBUTION WIDTH 12.6 % (9.0-15.0); WHITE BLOOD COUNT (AUTO) 7.2 K/uL (4.8-10.8)
[2020-01-27 06:15] LABS: ALBUMIN 1.8 g/dL (3.4-4.8); CALCIUM 8.1 mg/dL (8.4-11.0); CREATININE 1.26 mg/dL (0.55-1.30); POTASSIUM 3.8 mmol/L (3.5-5.1); TOTAL BILIRUBIN 0.5 mg/dL (0.0-1.0)
[2020-01-27] MEDS: IPRATROPIUM/ALBUTEROL SULFATE 3 ML AMPUL.NEB (DUONEB) INH SCH ×5 (07:02→23:03)
--- NOTE | 2020-01-27 07:25 | NUR ---
ENDORSEMENT Pt care endorsed to dayshift RN using nursing SBAR.
--- NOTE | 2020-01-27 07:54 | NUR ---
RN opening note Received SBAR report from endorsing RNBob. See VS flow sheet.
[2020-01-27] MEDS: MULTIVITAMINS TAB 1 TABLET GT SCH ×2 (08:16→21:43)
[2020-01-27] MEDS: amLODIPine BESYLATE 10 MG TABLET GT SCH (08:17)
[2020-01-27] MEDS: AMIODARONE HCL 200 MG TABLET GT SCH (08:18)
--- NOTE | 2020-01-27 09:00 | NUR ---
Doctor Yasmine in to see Thomas. Orders gien to decrease change Decadron schedule to Q8H. Ordered PT and ST/swallow eval. Orders received to transfer to [facility] if okay with attending doctor. Dr Harrison also here, no new orders. Thomas is speaking only Hungarian but is able to make needs known, continues to ask for "aqua" but remains NPO. Oral swabs given. See assessment.
--- NOTE | 2020-01-27 10:55 | NUR ---
RT NOTES- ROOM AIR PT SPO2 99% ON ROOM AIR, REMOVED COOL AEROSOL AT THIS TIME. RN NILSA AWARE. NO S/S DISTRESS NOTED. WILL CONTINUE MONITORING.
[2020-01-27] MEDS: CYANOCOBALAMIN 1000 mCg TABLET GT SCH (10:57)
--- NOTE | 2020-01-27 11:29 | NUR ---
Dr Broderick in to see Thomas. Approved transfer to [facility].
--- NOTE | 2020-01-27 13:06 | NUR ---
VIK GARCIA. CALLED EVIE LEFT A VOICE MESSAGE DIALED [phone]
--- NOTE | 2020-01-27 14:26 | NUR ---
Patient transferred to room 105B. Accompanied by 2xRNs. No complications. SBAR report given to Coni.
--- NOTE | 2020-01-27 14:32 | NUR ---
Transfer from ICU: Received from ICU . Patient is verbally responsive, tanzanian speaking only.. Breathing is even, non labored. Tracheal stoma is clean, covered with sterile gauze. GT is intact, with Glucerna 1.5 at 30ml/hr. Right upper arm PICC line intact and both ports patent with blood return. Circumference is 27 cm. external cath is 2 cm. Biopatch is noted. Howe catheter with yellow urine output to a bedside drainage bag. Left arm with edema, 2+ nonpitting and no movement noted. Left leg is contracted. Oriented to room, call light within reach.
--- NOTE | 2020-01-27 18:10 | NUR ---
End of shift: Noted with stridor, RT gave racemic epinephrine treatment. Needs attended.
[2020-01-27] MEDS ORDERED: RACEPINEPHRINE HCL 0.5 ML VIAL.NEB INH ONE (18:15)
--- NOTE | 2020-01-27 20:00 | NUR ---
INITIAL ASSESSMENT AT INITIAL ASSESSMENT, PATIENT IS RESTING IN BED, STABLE, NO SIGNS OF RESPIRATORY DISTRESS. PATIENT SHOWS NO PAIN PER FLACC SCALE USED. PLAN OF CARE FOR THE EVENING IS COMMUNICATED TO THE PATIENT AT THIS TIME. PATIENT IS UNSUCCESSFUL IN DEMONSTRATION OF CALL LIGHT USAGE DUE TO COGNITIVE IMPAIRMENT. BED IS LOCKED, ALARMED, AND AT THE LOWEST LEVEL. FALL, SAFETY, RESPIRATORY, AND ASPIRATION PRECAUTIONS WILL BE IN PLACE THROUGHOUT THE SHIFT.
[2020-01-27] MEDS: MORPHINE 2 MG/ML INJ. SYRINGE IVP PRN (21:58)
[2020-01-27] MEDS: AMIODARONE HCL 200 MG TABLET PO SCH (22:00)
--- NOTE | 2020-01-27 22:00 | NUR ---
NOTE SCHEDULED MEDICATIONS GIVEN AT THIS TIME, PATIENT HAD NO RESIDUAL IN HIS G TUBE. AT THIS TIME, PATIENT IS RESTING IN BED, STABLE, NO SIGNS OF RESPIRATORY DISTRESS. HE IS REPOSITIONED FOR COMFORT. CALL LIGHT IS WITHIN REACH. BED IS LOCKED, ALARMED, AND AT THE LOWEST LEVEL. Addendum: 01/28/20 at 0425 by Erasmo Alves RN PRN MEDICATION FOR PAIN ALSO GIVEN AT THIS TIME FOR PAIN PER FLACC SCALE USED.
[2020-01-27] MEDS: ACETAMINOPHEN 325 MG TABLET PO PRN (23:05)
[2020-01-28] VITALS: BP_SYST 157
--- NOTE | 2020-01-28 | NUR ---
HYGIENE CARE HYGIENE CARE PROVIDED AT THIS TIME, PATIENT TOLERATED WELL. FRESH LINENS PROVIDED. HE IS REPOSITIONED FOR COMFORT. CALL LIGHT IS WITHIN REACH. BED IS LOCKED, ALARMED, AND AT THE LOWEST LEVEL.
--- NOTE | 2020-01-28 02:00 | NUR ---
NOTE PATIENT IS SLEEPING, STABLE, NO SIGNS OF RESPIRATORY DISTRESS. CALL LIGHT IS WITHIN REACH. BED IS LOCKED, ALARMED, AND AT THE LOWEST LEVEL.
[2020-01-28] MEDS: IPRATROPIUM/ALBUTEROL SULFATE 3 ML AMPUL.NEB (DUONEB) INH SCH ×6 (03:12→23:12)
--- NOTE | 2020-01-28 04:00 | NUR ---
NOTE PATIENT IS SLEEPING, STABLE, NO SIGNS OF RESPIRATORY DISTRESS. CALL LIGHT IS WITHIN REACH. BED IS LOCKED, ALARMED, AND AT THE LOWEST LEVEL.
[2020-01-28] MEDS: PIPERACILLIN/TAZO 3.375/DEX-IS 50 ML IV SCH ×2 (05:14→12:36)
[2020-01-28] MEDS: DEXAMETHASONE SOD PHOSPHATE 4 MG/ML VIAL IVP SCH ×3 (05:15→21:31)
[2020-01-28] MEDS: APIXABAN 2.5 MG TABLET GT SCH ×2 (05:18→18:12)
[2020-01-28] MEDS: INSULIN REGULAR, HUMAN 100 UNITS/ML, 10 ML VIAL (humuLIN R) SUBCUT PRN ×3 (05:32→18:11)
[2020-01-28] MEDS: MORPHINE 2 MG/ML INJ. SYRINGE IVP PRN ×2 (05:48→21:27)
[2020-01-28 06:32] LABS: CALCIUM 8.3 mg/dL (8.4-11.0); CREATININE 1.14 mg/dL (0.55-1.30); POTASSIUM 3.7 mmol/L (3.5-5.1); TOTAL BILIRUBIN 0.4 mg/dL (0.0-1.0)
[2020-01-28 06:34] LABS: HEMATOCRIT 27.6 % (36-54); HEMOGLOBIN 9.5 g/dL (14.0-18.0); LYMPHOCYTES # (AUTO) 0.7 K/uL (1.0-5.5); MEAN CORPUSCULAR HEMOGLOBIN 34 pg (27-31); MEAN CORPUSCULAR HGB CONC 35 % (32-36); MEAN CORPUSCULAR VOLUME 100 fL (79.0-98.0); MONOCYTES # (AUTO) 0.2 K/uL (0.0-1.0); MONOCYTES % (AUTO) 1.9 % (1.7-9.3); NEUTROPHILS # (AUTO) 9.4 K/uL (1.8-7.7); NEUTROPHILS % (AUTO) 91.1 % (40.0-70.0); PLATELET COUNT (AUTO) 250 K/uL (130-430); RED BLOOD CELL COUNT(AUTO) 2.77 MIL/uL (4.2-6.2); WHITE BLOOD COUNT (AUTO) 10.3 K/uL (4.8-10.8)
--- NOTE | 2020-01-28 06:45 | NUR ---
CLOSING NOTE PATIENT'S TOLERATED ROOM AIR WITH OXYGEN SATURATING 99% THROUGHOUT THE NIGHT. PATIENT SLEPT WELL THROUGHOUT THE SHIFT. AT THIS TIME, PATIENT IS RESTING IN BED, STABLE, NO SIGNS OF RESPIRATORY DISTRESS. CALL LIGHT IS WITHIN REACH. BED IS LOCKED, ALARMED, AND AT THE LOWEST LEVEL. FALL, SAFETY, RESPIRATORY, ASPIRATION, AND SWALLOW PRECAUTIONS HAVE BEEN IN PLACE THROUGHOUT THE SHIFT. WILL CONTINUE TO MONITOR UNTIL SHIFT REPORT IS GIVEN AT BEDSIDE TO AM SHIFT.
--- NOTE | 2020-01-28 07:56 | NUR ---
initial notes rec patient awake non verbally at this time. picc line intact, no infiltration noted. resp easy and unlabored. no sob noted. gt feeding cruz well. no residual noted. bed to the lowest position and side rails up and locked. call light within reached and knows when to call for assistance. pt close to the nurses station.
[2020-01-28 08:00] VITALS: BP_SYST 165
[2020-01-28] MEDS: AMIODARONE HCL 200 MG TABLET PO SCH ×2 (09:29→21:26)
[2020-01-28] MEDS: CYANOCOBALAMIN 1000 mCg TABLET GT SCH (09:30)
[2020-01-28] MEDS: MULTIVITAMINS TAB 1 TABLET GT SCH ×2 (09:30→21:26)
[2020-01-28] MEDS: amLODIPine BESYLATE 10 MG TABLET GT SCH (09:30)
--- NOTE | 2020-01-28 10:00 | NUR ---
rounds seen by dr perrin at bedside. awaiting for swallow eval . due meds given through gt. no residual and cruz well. hob elevated.
--- NOTE | 2020-01-28 11:39 | NUR ---
S.T. SWALLOW EVAL SWALLOW EVAL COMPLETED. PT PRESENTS W/ ML ORAL DYSPHAGIA W/ L ANTERIOR LEAKAGE FOR CUP SIP THIN LIQUIDS AND ML PROLONGED MASTICATION. NO S/S OF ASPIRATION. [facility]. THIN LIQUIDS OK. R.D. CONSULT TO DETERMINE GT FEEDING WHEN ORAL FEEDING STARTS. NURSE ARTEMIO NOTIFIED.
[2020-01-28 12:20] VITALS: BP_SYST 160
--- NOTE | 2020-01-28 12:30 | NUR ---
rounds pt was ordered with mechanical soft after seen by lupe for swallow eval and passed the test. with a good appetite. no hypo hyperglycemic reaction noted.
--- NOTE | 2020-01-28 13:05 | NUR ---
Discharge Planning: KENYA faxed pt referral to [facility] (f [phone] p [phone]) DCP to follow up. Addendum: 01/28/20 at 1644 by Lily OVERTON DCP spoke Jeremy at [facility] (f [phone] p [phone]) pt can go to Rm 42, [facility] [phone] is to be called when patient is discharging and time can be set up, NO WILL CALL. MARYSEP made nurse aware.
--- NOTE | 2020-01-28 13:56 | NUR ---
Nutrition F/U Admitting Diagnosis: Pneumonia, R/O COVID Medical History Comment: Pneumonia, COVID-19 Neagtive x 2 01/20, 01/22, Anemia, Hyperglycemia per ER MD documentation. PMH: DM, GERD, HTN< Renal Dz, PSH: Tracheostomy, GT placement. Subjective Information 01/27: SWALLOW EVAL COMPLETED. PT PRESENTS W/ ML ORAL DYSPHAGIA W/ L ANTERIOR LEAKAGE FOR CUP SIP THIN LIQUIDS AND ML PROLONGED MASTICATION. NO S/S OF ASPIRATION. REC: [facility] SOFT FINELY CHOPPED DIET. THIN LIQUIDS OK. R.D. CONSULT TO DETERMINE GT FEEDING WHEN ORAL FEEDING STARTS. RD s/w pt's primary RN and she reported this morning that pt is tolerating EN regimen well, no residual this morning. RD s/w RN again at 1400 and she reported that pt has tolerated oral diet well and ate almost 100% and tolerates liquids as well. ONS can be added to current diet to better meet nutrient needs. Current Diet Order/Nutrition Support: Mechanical soft, Finely chopped diet Pertinent Medications: insulin, reglan, zofran, eliquis, amiodarone, VIT B12, MVI, reglan Pertinent Labs: 01/27 Na 146H, K 3.7 WNL, BG 287H, POC BG 243H, BUN 22 H COVID-19 PCR Negative x 2 01/20, 01/22 per EMR Skin Integrity Comment: Mathew scale: 15. No PIs, +healed scar to neck and coccyx. non-pitting edema to Left hand per EMR Current % PO Good per RN report Estimated Energy Expenditure (kcals/day) 5315-2116 kcal/day (25-30 kcal/kg IBW for maintenance) Estimated Protein Required (g/day) 70gm/day (1gm/kg IBW for maintenance) Estimated Fluid Required (l/day) 2.1 L/day (30ml/kg IBW for maintenance) Problem/Etiology/Signs/Symptoms Altered nutrition-related labs r/t endocrine dysfunction AEB elevated BG and POC BG lab values and Hx of DM. *ongoing Expected Outcomes/Goals Monitor intake of nutrition support w/ goal of pt meeting at least 75% of estimated nutritional needs, labs trending WNL, normal GI function, skin integrity/wt maintenance. Dietitian Recommendations *Recommend adding 2gm Na CCHO diet w/ Glucerna BID. ONS will provide additional 440 kcal and 20gm protein daily. *Continue Mechanical soft finely chopped diet per ROTARY ENGINE ASSEMBLER rec. *Continue MVI. Follow Up High Risk: F/U in 2-3days Addendum: 01/28/20 at [address] Additional Dietitian Recommendation *Recommend: discontinue GT feeding. KYLER LOMAX
--- NOTE | 2020-01-28 14:11 | NUR ---
Dietitian Recommendations *Recommend: Discontinue GT feeding. *Recommend adding 2gm Na CCHO diet w/ Glucerna BID. ONS will provide additional 440 kcal and 20gm protein daily. *Continue Mechanical soft finely chopped diet per VEST MAKER rec. *Continue MVI. Please see Nutrition F/U note for details. MONIE, RD
--- NOTE | 2020-01-28 15:00 | NUR ---
rounds awake resting comfortably. denies pain . no sob noted.
[2020-01-28 16:13] VITALS: BP_SYST 149
--- NOTE | 2020-01-28 17:52 | NUR ---
Transport: spoke with Caitlin at [facility], [facility] transport arranged for 8:00 pm. She said, however, it could be as early as 7:00 pm. confirmation number: [phone]
--- NOTE | 2020-01-28 18:40 | NUR ---
closing notes awaiting for report to give to liana jose re patient. gt was clamped . picc line was flushed and clamped. pt with good appetite. no sob noted stridor breathing noted. with stoma and clean covered with 2x2. awaiting for ambulance.
[2020-01-28 19:26] VITALS: BP_SYST 149
--- NOTE | 2020-01-28 19:30 | NUR ---
Day nurse attempted to give report to Antony Kebede but per staff Bed 42 is occupied and they will call when bed available.
[2020-01-28 20:00] VITALS: BP_SYST 167
--- NOTE | 2020-01-28 20:00 | NUR ---
Opening notes Pt AAOx2, confused, pt able to answer simple questions. VSS, afebrile. No s/s distress noted. Old stoma dressing C/D/I. PICC line on BRANDI dressing C/D/I good blood return. GT clamped. Howe catheter draining to gravity with good urine output. Call light within reach. Bed low, locked, siderails up x3. To monitor.
--- NOTE | 2020-01-28 20:20 | NUR ---
Called [facility], s/w Jerardo, notifying them that the patient is not leaving tonight due to no bed is available as per RN Narcisa. Will Call was arranged with [facility].
--- NOTE | 2020-01-28 23:00 | NUR ---
Covid specimen collected and sent to lab.
--- NOTE | 2020-01-29 00:25 | NUR ---
Blood sugar Pt asleep, easily awakens. Blood sugar checked 267, 6 units Regular insulin. Call light within reach. To monitor.
[2020-01-29] MEDS: INSULIN REGULAR, HUMAN 100 UNITS/ML, 10 ML VIAL (humuLIN R) SUBCUT PRN ×3 (00:32→11:47)
[2020-01-29 00:41] VITALS: BP_SYST 165
[2020-01-29] MEDS: IPRATROPIUM/ALBUTEROL SULFATE 3 ML AMPUL.NEB (DUONEB) INH SCH ×3 (03:26→11:02)
[2020-01-29] MEDS: DEXAMETHASONE SOD PHOSPHATE 4 MG/ML VIAL IVP SCH ×2 (05:46→13:10)
[2020-01-29] MEDS: APIXABAN 2.5 MG TABLET GT SCH (05:50)
--- NOTE | 2020-01-29 05:50 | NUR ---
Closing notes Pt alert, awake, no s/s distress noted. Blood sugar checked 220, 4 units Regular insulin administered per protocol. Pt able to tolerate PO meds with applesauce. GT clampled. Howe catheter draining to gravity. BRANDI PICC line dressing C/D/I. Call light within reach. Bed low,locked, siderails up x3. Bed alarm on. To endorse to AM nurse.
--- NOTE | 2020-01-29 07:30 | NUR ---
INITIAL NOTE PT AWAKE, REPOSITIONED PT IN BED. PT RECEIVING BREATHING TREATMENT AT THIS TIME. PT DENIES ANY PAIN OR DISCOMFORT. PT AOX3 AND COOPERATIVE. IV SALINE LOCKED. CALL LIGHT WITHIN REACH, BED IN LOW AND LOCKED POSITION WITH BED ALARM ON.
[2020-01-29 08:00] VITALS: BP_SYST 159
[2020-01-29] MEDS: CYANOCOBALAMIN 1000 mCg TABLET GT SCH (08:24)
[2020-01-29] MEDS: amLODIPine BESYLATE 10 MG TABLET GT SCH (08:24)
[2020-01-29] MEDS: AMIODARONE HCL 200 MG TABLET PO SCH (08:24)
[2020-01-29] MEDS: MULTIVITAMINS TAB 1 TABLET GT SCH (08:25)
[2020-01-29 09:21] VITALS: BP_SYST 145
--- NOTE | 2020-01-29 09:30 | NUR ---
MORNING MEDICATIONS PT EATING BREAKFAST WITHOUT ASSISTANCE. PT TOLERATING WELL. MEDICATIONS ADMINISTERED, PT TOLERATED WELL. WILL CONTINUE TO MONITOR.
--- NOTE | 2020-01-29 11:11 | NUR ---
P.T. NOTES AFTER MULTIPLE ATTEMPTS AND ENCOURAGEMENT PATIENT CONTINUES TO REFUSE TO WORK W/ P.T., STATES STILL NOT FEELING WELL AND WOULD LIKE TO GET SOME REST/SLEEP.
--- NOTE | 2020-01-29 11:30 | NUR ---
RN ROUNDS REPOSITIONED PT IN BED, SAT PT UP IN HIGH FOWLERS. PT ABLE TO FEED SELF WITHOUT ASSISTANCE. WILL CONTINUE TO MONITOR.
[2020-01-29 11:35] VITALS: BP_SYST 151
--- NOTE | 2020-01-29 12:24 | NUR ---
Discharge Planning: KENYA spoke to Jeremy at [facility] (f [phone] p [phone]) patient will go to room 9A, MARYSEP made [facility] aware nurse was busy. KENYA also told [facility] transportation [facility] [phone] does not do Will Call, ask nurse for exact time for P/U. Patient packet is already at nurse station.
--- NOTE | 2020-01-29 12:50 | NUR ---
AMBULANCE ARRANGEMENT MADE CALLED [facility] AT [phone] FOR A 1430 CONFIRMATION #[id number].
[2020-01-29] MEDS: ACETAMINOPHEN 325 MG TABLET PO PRN (13:18)
--- NOTE | 2020-01-29 13:20 | NUR ---
PAIN MEDICATION PT COMPLAINING OF PAIN OF MILD PAIN IN LEFT FOOT. PRN TYLENOL INDICATED FOR PAIN. PAIN MEDICATION ADMINISTERED. REPOSITIONED PT FOR COMFORT, PT TOLERATED WELL. WILL CONTINUE TO MONITOR.
--- NOTE | 2020-01-29 13:46 | NUR ---
ABDIRIZAK DAILEY/INFORMED FAMILY REPORT GIVEN ARMAND FROM ABDIRIZAK DAILEY. INFORMED NURSE PT WILL BE PICKED UP AT 2:30PM AND TAKEN TO ROOM 9A. SPOKE WITH SON, MICHAEL HOPPER, SON IS AWARE OF TRANSFER AND AGREEABLE.
[2020-01-29 14:49] VITALS: BP_SYST 145
--- NOTE | 2020-01-29 14:50 | NUR ---
DISCHARGE NOTE DISCHARGE PACKET GIVEN TO AMBULANCE. ALL BELONGINGS WITH PT. PICC LINE LINE REMOVED, CATHETER INTACT, NO BLEEDING. DE LA PAZ REMOVED, OUTPUT 650CC, CLEAR AND JOURDAN. PT DENIES ANY PAIN OR DISCOMFORT. PT TO BE TAKEN TO [facility], ROOM 9A, GAVE REPORT TO ARMAND. SON, JOSE E AWARE OF PT TRANSFER TO [facility]. ID [facility]PITAL BAND REMOVED.
--- NOTE | 2020-01-29 15:14 | NUR ---
PHYSICAL THERAPY CO-SIGN The Physical Therapy Progress Notes documented by Detail Technician have been reviewed. Reviewed/Co-Signed by: Nyasia Garner PT Documentation Done by:KATLIN ANAND STRE[address] CAR INSPECTOR 01/28/20 PENDING COVID19; 01/21/20, 01/23/20 (-)COVID19 01/29/20 Hgb=9.5, POC WLHNEQI=088 Addendum: 01/29/20 at 1516 by Nyasia Garner PT Amended: Links added.
== END 2020-01-29 14:50 | DRG 720 ==
LOC: SED 16:26 → EEVIPCON 20:03 → STU 20:03 → SIC 01-22 16:57 → STU 01-27 13:49 → SMU 01-28 10:30
PROVIDERS: ADMIT Internal Medicine Hospice and Palliative Medicine; ATTEND Internal Medicine Hospice and Palliative Medicine
PROC: 5A1945Z Respiratory Ventilation, 24-96 Consecutive Hours (ICD-10-PCS; principal; 2020-01-21)
PROC: 0BH17EZ Insertion of Endotracheal Airway into Trachea, Via Natural or Artificial Opening (ICD-10-PCS; 2020-01-21)
PROC: B54MZZA Ultrasonography of Right Upper Extremity Veins, Guidance (ICD-10-PCS; 2020-01-23)
PROC: 05HY33Z Insertion of Infusion Device into Upper Vein, Percutaneous Approach (ICD-10-PCS; 2020-01-23)
PROC: 5A09357 Assistance with Respiratory Ventilation, Less than 24 Consecutive Hours, Continuous Positive Airway Pressure (ICD-10-PCS; 2020-01-26)
DX: A41.9 Sepsis, unspecified organism (principal); J69.0 Pneumonitis due to inhalation of food and vomit; E43 Unspecified severe protein-calorie malnutrition; J96.21 Acute and chronic respiratory failure with hypoxia; G93.41 Metabolic encephalopathy; Z99.11 Dependence on respirator [ventilator] status; I48.0 Paroxysmal atrial fibrillation; E11.65 Type 2 diabetes mellitus with hyperglycemia; D64.9 Anemia, unspecified; E78.5 Hyperlipidemia, unspecified; E87.6 Hypokalemia; K21.9 Gastro-esophageal reflux disease without esophagitis; I10 Essential (primary) hypertension; Z20.828 Contact with and (suspected) exposure to other viral communicable diseases; Z86.73 Personal history of transient ischemic attack (TIA), and cerebral infarction without residual deficits; Z93.1 Gastrostomy status; Z68.25 Body mass index [BMI] 25.0-25.9, adult
CPT/HCPCS: 36415; 36600; 71045; 80053; 81000-TC; 82550-TC; 82728; 82803-TC; 82962; 83605; 83615-TC; 83880; 84443-TC; 84484; 85025; 85384-TC; 85610-TC; 85730-TC; 86140; 87040-TC; 87070-TC; 87081; 87086; 87205-TC; 92610-GN; 93005; 93306; 94002; 94003; 94640; 94660; 94760; 96365; 96367; 96375; 97110-GP; 97530-GP; 99291; C1751; C9113; G0378; J0282; J0456; J1100; J1815; J2270; J2543; J2704; J3480; J3490; J7030; J7050; J7060; U0003-CS